=== PATIENT | male | born 1985 | race Caucasian/White ===

== ENCOUNTER 2021-05-29 15:41 | Emergency (ER) | payer OTHER ==
[~2021-05-29] VITALS: Ht 175.3 cm; Wt 123.4 kg
[2021-05-29] MEDS ORDERED: MEDROLPACK PO (19:47)
[2021-05-29] MEDS ORDERED: OSEL75CA PO (19:47)
[2021-05-29] MEDS ORDERED: DOLOGEN 325-11 EACH PO (19:47)
== END 2021-05-29 21:21 | disposition home or self-care (01) ==
LOC: ER 15:41
DX: J10.1 Influenza due to other identified influenza virus with other respiratory manifestations (principal); J02.8 Acute pharyngitis due to other specified organisms; Z20.822 Contact with and (suspected) exposure to COVID-19